=== PATIENT | female | born 2000 | race African-American/Black ===

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

== ENCOUNTER 2018-01-26 01:51 | Emergency (ER) | payer SELFPAY ==
[~2018-01-26] VITALS: Ht 165.1 cm; Wt 90.7 kg
[2018-01-26 01:51] VITALS: BP 131/70
[~2018-01-26 01:51] MED LIST: AMOX500C PO; NITR100C62 PO; OFLO10DR21 OT
--- NOTE | 2018-01-26 02:24 | PHYS DOC ---
Past Medical History Past Medical History: Other Additional Past Medical Histor: PREECLAMPSIA Past Surgical History: No Surgical History Alcohol Use: None Drug Use: None Adult General Chief Complaint Chief Complaint: MECHANICAL FALL HPI HPI Patient is a 17 year old female who presents after a fall. Patient is a at 17 weeks gestation by her last menstrual period. She presents to the ER via EMS this evening after a fall. She was carrying her 3-year-old up about 5 steps when she missed the top step and fell backwards. She was protecting her 3-year- old and landed on her abdomen and the right knee. She complains of minor abrasion to the right knee. She does not have significant abdominal pain but she is concerned about her . She does have minor abrasions over the right middle area of the abdomen. She did not strike her head. No loss of consciousness. No vision changes, nausea, vomiting. No cervical neck pain. No back pain. Review of Systems Review of Systems Constitutional: Denies fever Eyes: Denies change in visual acuity HENT: Denies nasal congestion Respiratory: Denies cough or shortness of breath GI: Denies abdominal pain, nausea or vomiting : Denies dysuria Musculoskeletal: Denies back pain Integument: Denies rash or skin lesions Neurologic: Denies headache Endocrine: Denies polyuria All other systems were reviewed and found to be within normal limits, except as documented in this note. Allergies Allergies Allergies Coded Allergies Type Severity Reaction Last Updated Verified No Known Drug Allergies 02/17/14 No Physical Exam Physical Exam Constitutional: Well developed, well nourished, no acute distress HENT: Normocephalic, atraumatic, bilateral external ears normal, oropharynx moist Eyes: PERRLA, EOMI, conjunctiva normal, no discharge Neck: Normal range of motion, no tenderness, supple Cardiovascular:Heart rate regular rhythm, no murmur Lungs & Thorax: Bilateral breath sounds clear to auscultation Abdomen: appropriately gravid abdomen, soft, nontender, minor abrasions Skin: Warm, dry, no erythema, no rash Back: No tenderness Extremities: No no edema. Minor abrasion over anterior aspect of the right knee but no pain with passive range of motion or manipulation of the right knee. Neurologic: Alert and oriented X 3 Psychologic: Affect normal Current Patient Data Vital Signs Vital Signs Date Time Temp Pulse Resp B/P (MAP) Pulse Ox O2 Delivery O2 Flow Rate FiO2 01/26/18 01:51 98.4 98 18 131/70 (90) 100 Room Air 98.4 Lab Values Laboratory Tests Test 01/26/18 02:17 Urine Collection Type Unknown Urine Color Yellow Urine Clarity Cloudy Urine pH 6.0 Urine Specific [place] >=1.030 Urine Protein Negative mg/dL (NEG-TRACE) Urine Glucose (UA) Negative mg/dL (NEG) Urine Ketones (Stick) Trace mg/dL (NEG) Urine Blood Negative (NEG) Urine Nitrite Negative (NEG) Urine Bilirubin Negative (NEG) Urine Urobilinogen Dipstick 1.0 mg/dL (0.2 mg/dL) Urine Leukocyte Esterase Trace (NEG) Urine RBC Occ /HPF (0-2) Urine WBC 5-10 /HPF (0-4) Urine Squamous Epithelial Cells Mod /LPF Urine Bacteria Many /HPF (0-FEW) Urine Mucus Mod /LPF EKG EKG [] Radiology/Procedures Radiology/Procedures [] Course & Med Decision Making Course & Med Decision Making Pertinent Labs and Imaging studies reviewed. (See chart for details) Patient is evaluated immediately on arrival to the ER. Bedside ultrasound is performed. The patient has an intrauterine gestation. There is no placental separation seen and no subchorionic hemorrhage. The fetus has frequent movements and heart rate in the 160s. FAST exam also completed and negative for any free fluid in the abdomen. Her abdominal exam is completely benign. Patient denies need for pain medications. UA completed and negative for blood. Patient is discharged to home. She has close f/u with her OB clinic at [facility] already scheduled. Recommended to come to the emergency department for any new or worsening symptoms or concerns. Patient is agreeable to the plan of care. All of her questions were answered prior to discharge home. Dragon Disclaimer Dragon Disclaimer This electronic medical record was generated, in whole or in part, using a voice recognition dictation system. Departure Departure Disposition: HOME, SELF-CARE Condition: GOOD Referrals: NO PCP (PCP) Scripts Nitrofurantoin Monohyd/M-Cryst (MACROBID 100 MG CAPSULE) 100 Mg Capsule 1 CAP PO BID, #10 CAP Prov: YADIEL OLIVA DO 01/26/18 YADIEL OLIVA DO Jan 26, 2018 02:24
[2018-01-26 02:31] LABS: BILIRUBIN,URINE NEGATIVE (NEG); CLARITY,URINE CLOUDY; COLOR,URINE YELLOW; NITRITE,URINE NEGATIVE (NEG); PROTEIN,URINE NEGATIVE (NEG-TRACE)
[2018-01-26 02:37] LABS: BACTERIA,URINE MANY /HPF (0-FEW); RBC,URINE OCC /HPF (0-2); SQUAMOUS EPITHELIAL CELL,UR MOD /LPF
[2018-01-26] MEDS ORDERED: NITR100C62 PO (02:43)
== END 2018-01-26 02:45 | disposition home or self-care (01) ==
LOC: ER 01:51
DX: O9A.212 Injury, poisoning and certain other consequences of external causes complicating pregnancy, second trimester (principal); S80.211A Abrasion, right knee, initial encounter; Z3A.17 17 weeks gestation of pregnancy; W10.8XXA Fall (on) (from) other stairs and steps, initial encounter; Y93.89 Activity, other specified; Y92.89 Other specified places as the place of occurrence of the external cause; Y99.8 Other external cause status
CPT/HCPCS: 81001; 99283